=== PATIENT | female | born 1995 | race Two or more races ===

== ENCOUNTER 2017-01-29 10:21 | Inpatient (IN) | payer MEDICAID, OTHER ==
[2017-01-29 11:01] LABS: Urine Bilirubin Negative (Negative); Urine Glucose Negative (Negative); Urine Nitrite Negative (Negative)
[2017-01-29 11:21] LABS: Hematocrit 36 % (35-47); Hemoglobin 12.1 g/dl (12.0-16.0); Mean Corpuscular HGB Conc 33 g/dl (31-36); Mean Corpuscular Hemoglobin 29 pg (27-31); Mean Corpuscular Volume 88 fL (80-97); Mean Platelet Volume 9 um3 (7.4-10.4); Red Blood Count 4.12 10^6/ul (4.0-5.4); Red Cell Distribution Width 12 % (10.5-15); White Blood Count 6.5 10^3/ul (3.5-10.8)
[2017-01-29 11:23] LABS: Benzodiazepine Urine Screen None Detected (None Detect)
[2017-01-29 11:32] LABS: ALT 68 U/L (7-52); AST 71 U/L (13-39); Albumin 4.1 g/dL (3.2-5.2); Alkaline Phosphatase 50 U/L (34-104); Anion Gap 4 mmol/L (2-11); BUN/Creatinine Ratio 20.8 (8-20); Blood Urea Nitrogen 11 mg/dL (6-24); CO2 Carbon Dioxide 29 mmol/L (22-32); Calcium 9.1 mg/dL (8.6-10.3); Chloride 101 mmol/L (101-111); EGFR African American 191.1 (>60); EGFR Non-African American 148.6 (>60); Globulin 3.2 g/dL (2-4); Glucose 87 mg/dL (70-100); Potassium 3.6 mmol/L (3.5-5.0); Sodium 134 mmol/L (133-145); Total Protein 7.3 g/dL (6.4-8.9)
[2017-01-29 12:40] LABS: Acetaminophen < 15 mcg/mL; Alcohol < 10 mg/dL (<10); Salicylate < 2.50 mg/dL (<30)
[2017-01-29 12:50] LABS: TSH (Thyroid Stimulating Horm) 0.38 mcIU/mL (0.34-5.60)
[2017-01-29] MEDS ORDERED: Nicotine Inhaler* 10 MG AMP INH PRN (15:54)
[2017-01-29] MEDS ORDERED: Al Hydrox/Mg Hydrox/Simet LIQ* 30 ML UDC PO PRN (15:54)
[2017-01-29] MEDS ORDERED: Acetaminophen TAB* 325 MG PO PRN (15:54)
--- NOTE | 2017-01-29 16:06 | PN ---
Rey Álvarez Billy, scribed for Uri Alves MD on 01/29/17 at 1605 . Progress Note - Progress Note Note: Signed a voluntary mental health admission. Diagnosis: Depression. Condition: Stable. Disposition: Admitted to [facility] facilities. The documentation as recorded by the isabelleibRey de jesus Billy accurately reflects the service I personally performed and the decisions made by Joselyn fang Drew, MD.
--- NOTE | 2017-01-29 17:41 | ED ---
Mariella Álvarez Alok, scribed for Jude Shaw MD on 01/29/17 at 1059 . Psychiatric Complaint - HPI Summary HPI Summary: 21 y/o female presents to the ED with feelings of depression and fatigue. Pt reports that she has been stressed recently due to a greater workload at school as well as extracurricular activities. Pt states she has not been sleeping much and eating little. She states she has some thoughts of hurting herself with no plan. Pt has cut her risks before. PMHx includes hx of depression and anxiety. - History Of Current Complaint Chief Complaint: EDMentalHealth Time Seen by Provider: 01/29/17 10:47 Hx Obtained From: Patient ?: No Onset/Duration: Gradual Onset, Lasting Days, Still Present Timing: Constant Severity Initially: Moderate Severity Currently: Moderate Character: Depressed, Anxious Aggravating Factor(s): Nothing Alleviating Factor(s): Nothing Associated Signs And Symptoms: Positive: Sleep Disturbance, Appetite Change - Allergies/Home Medications Allergies/Adverse Reactions: Allergies Allergy/AdvReac Type Severity Reaction Status Date / Time No Known Allergies Allergy Verified 01/29/17 10:52 Home Medications: Home Medications Escitalopram (NF) [Lexapro (NF)] 15 mg PO DAILY 01/29/17 [History Confirmed 08/09] Gabapentin CAP(*) [Neurontin 400 mg CAP(*)] 400 mg PO TID 01/29/17 [History Confirmed 01/29/17] PMH/Surg Hx/FS Hx/Imm Hx Psychiatric History: Reports: Hx Anxiety, Hx Depression Infectious Disease History: No Infectious Disease History: Denies: Traveled Outside the [place] in Last 30 Days - Family History Known Family History: Negative: Cardiac Disease, Diabetes - Social History Occupation: Student Alcohol Use: None Hx Substance Use: No Hx Tobacco Use: No Review of Systems Negative: Fever Positive: Anxious, Depressed All Other Systems Reviewed And Are Negative: Yes Physical Exam Triage Information Reviewed: Yes Vital Signs On Initial Exam: Initial Vitals Temp Pulse Resp BP Pulse Ox 97.4 F 71 16 118/72 98 01/29/17 10:24 01/29/17 10:24 01/29/17 10:24 01/29/17 10:24 01/29/17 10:24 Vital Signs Reviewed: Yes Appearance: Positive: Well-Appearing, No Pain Distress, Well-Nourished Skin: Positive: Warm, Skin Color Reflects Adequate Perfusion, Dry Head/Face: Positive: Normal Head/Face Inspection Eyes: Positive: Normal, EOMI, BHARAT ENT: Positive: Normal ENT inspection Neck: Positive: Supple, Nontender Respiratory/Lung Sounds: Positive: Clear to Auscultation, Breath Sounds Present Cardiovascular: Positive: Normal, RRR Abdomen Description: Positive: Nontender, Soft Bowel Sounds: Positive: Present Musculoskeletal: Positive: Normal, Strength/ROM Intact Neurological: Positive: Normal, Sensory/Motor Intact, Alert, Oriented to Person Place, Time Psychiatric: Positive: Anxious, Depressed Diagnostics - Vital Signs Vital Signs Temp Pulse Resp BP Pulse Ox 01/29/17 10:24 97.4 F 71 16 118/72 98 - Laboratory Lab Results: Lab Results 01/29/17 01/29/17 01/29/17 Range/Units 10:28 10:28 11:07 WBC 6.5 (3.5-10.8) 10^3/ul RBC 4.12 (4.0-5.4) 10^6/ul Hgb 12.1 (12.0-16.0) g/dl Hct 36 (35-47) % MCV 88 (80-97) fL MCH 29 (27-31) pg MCHC 33 (31-36) g/dl RDW 12 (10.5-15) % Plt Count 281 (150-450) 10^3/ul MPV 9 (7.4-10.4) um3 Neut % (Auto) 44.8 (38-83) % Lymph % (Auto) 44.9 (25-47) % Owen % (Auto) 7.5 (1-9) % Eos % (Auto) 1.7 (0-6) % Baso % (Auto) 1.1 (0-2) % Absolute Neuts (auto) 2.9 (1.5-7.7) 10^3/ul Absolute Lymphs (auto) 2.9 (1.0-4.8) 10^3/ul Absolute Monos (auto) 0.5 (0-0.8) 10^3/ul Absolute Eos (auto) 0.1 (0-0.6) 10^3/ul Absolute Basos (auto) 0.1 (0-0.2) 10^3/ul Absolute Nucleated RBC 0.01 10^3/ul Nucleated RBC % 0.1 Sodium (133-145) mmol/L Potassium (3.5-5.0) mmol/L Chloride (101-111) mmol/L Carbon Dioxide (22-32) mmol/L Anion Gap (2-11) mmol/L BUN (6-24) mg/dL Creatinine (0.51-0.95) mg/dL Est GFR ( Amer) (>60) Est GFR (Non-Af Amer) (>60) BUN/Creatinine Ratio (8-20) Glucose (70-100) mg/dL Calcium (8.6-10.3) mg/dL Total Bilirubin (0.2-1.0) mg/dL AST (13-39) U/L ALT (7-52) U/L Alkaline Phosphatase (34-104) U/L Total Protein (6.4-8.9) g/dL Albumin (3.2-5.2) g/dL Globulin (2-4) g/dL Albumin/Globulin Ratio (1-3) TSH Urine Color Yellow Urine Appearance Clear Urine pH 7.0 (5-9) Ur Specific [place] 1.021 (1.010-1.030) Urine Protein Negative (Negative) Urine Ketones Negative (Negative) Urine Blood Negative (Negative) Urine Nitrate Negative (Negative) Urine Bilirubin Negative (Negative) Urine Urobilinogen Negative (Negative) Ur Leukocyte Esterase Negative (Negative) Urine Glucose Negative (Negative) Urine Ascorbic Acid * H (Negative) Salicylates Urine Opiates Screen None detected (None Detect) Acetaminophen Ur Barbiturates Screen None detected (None Detect) Ur Phencyclidine Scrn None detected (None Detect) Ur Amphetamines Screen None detected (None Detect) U Benzodiazepines Scrn None detected (None Detect) Urine Cocaine Screen None detected (None Detect) U Cannabinoids Screen None detected (None Detect) Serum Alcohol 01/29/17 Range/Units 11:07 WBC (3.5-10.8) 10^3/ul RBC (4.0-5.4) 10^6/ul Hgb (12.0-16.0) g/dl Hct (35-47) % MCV (80-97) fL MCH (27-31) pg MCHC (31-36) g/dl RDW (10.5-15) % Plt Count (150-450) 10^3/ul MPV (7.4-10.4) um3 Neut % (Auto) (38-83) % Lymph % (Auto) (25-47) % Owen % (Auto) (1-9) % Eos % (Auto) (0-6) % Baso % (Auto) (0-2) % Absolute Neuts (auto) (1.5-7.7) 10^3/ul Absolute Lymphs (auto) (1.0-4.8) 10^3/ul Absolute Monos (auto) (0-0.8) 10^3/ul Absolute Eos (auto) (0-0.6) 10^3/ul Absolute Basos (auto) (0-0.2) 10^3/ul Absolute Nucleated RBC 10^3/ul Nucleated RBC % Sodium 134 (133-145) mmol/L Potassium 3.6 (3.5-5.0) mmol/L Chloride 101 (101-111) mmol/L Carbon Dioxide 29 (22-32) mmol/L Anion Gap 4 (2-11) mmol/L BUN 11 (6-24) mg/dL Creatinine 0.53 (0.51-0.95) mg/dL Est GFR ( Amer) 191.1 (>60) Est GFR (Non-Af Amer) 148.6 (>60) BUN/Creatinine Ratio 20.8 H (8-20) Glucose 87 (70-100) mg/dL Calcium 9.1 (8.6-10.3) mg/dL Total Bilirubin 0.40 (0.2-1.0) mg/dL AST 71 H (13-39) U/L ALT 68 H (7-52) U/L Alkaline Phosphatase 50 (34-104) U/L Total Protein 7.3 (6.4-8.9) g/dL Albumin 4.1 (3.2-5.2) g/dL Globulin 3.2 (2-4) g/dL Albumin/Globulin Ratio 1.3 (1-3) TSH Pending Urine Color Urine Appearance Urine pH (5-9) Ur Specific [place] (1.010-1.030) Urine Protein (Negative) Urine Ketones (Negative) Urine Blood (Negative) Urine Nitrate (Negative) Urine Bilirubin (Negative) Urine Urobilinogen (Negative) Ur Leukocyte Esterase (Negative) Urine Glucose (Negative) Urine Ascorbic Acid (Negative) Salicylates Pending Urine Opiates Screen (None Detect) Acetaminophen Pending Ur Barbiturates Screen (None Detect) Ur Phencyclidine Scrn (None Detect) Ur Amphetamines Screen (None Detect) U Benzodiazepines Scrn (None Detect) Urine Cocaine Screen (None Detect) U Cannabinoids Screen (None Detect) Serum Alcohol Pending Result Diagrams: 01/29/17 11:07 01/29/17 11:07 Lab Statement: Any lab studies that have been ordered have been reviewed, and results considered in the medical decision making process. Course/Dx - Course Course Of Treatment: 21 y/o female presents to the ED with feelings of depression and fatigue. Pt reports that she has been stressed recently due to a greater workload at school as well as extracurricular activities. Pt states she has not been sleeping much and eating little. She states she has some thoughts of hurting herself with no plan. Pt has cut her risks before. PMHx includes hx of depression and anxiety. Assessment/Plan: . All blood work WNL. She is medically cleared. She is awaiting for a MHE. Dr. Smith will admit to the psych unit under her services. Patient is hemodynamically stable and A+O x 3. - Differential Dx/Clinical Impression Differential Diagnosis/HQI/PQRI: Positive: Depression, Suicidal Ideation, Suicidal Gesture Provider Diagnosis: Depression Discharge - Discharge Plan Condition: Stable [facility] [facility] The documentation as recorded by the Mariella valera Alok accurately reflects the service I personally performed and the decisions made by , Jude Shaw MD.
[2017-01-29] MEDS: Gabapentin CAP(*) 400 MG PO SCH (20:13)
[2017-01-30] MEDS: Vitamin THERAPEUTIC TAB PO SCH (08:06)
[2017-01-30] MEDS: Citalopram TAB* 10 MG PO SCH (08:07)
[2017-01-30] MEDS: Gabapentin CAP(*) 400 MG PO SCH ×3 (08:07→20:26)
[2017-01-30 11:51] LABS: Prealbumin 18 mg/dL (18-38)
--- NOTE | 2017-01-30 12:53 | HP ---
DATE OF ADMISSION: 01/29/2017. 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 She is admitted to the Psychiatric Unit after coming to the hospital emergency room by ambulance due to concern over "feeling overwhelmed and wanting to ." HISTORY OF PRESENT ILLNESS: Subhash reports that she has engaged in self- cutting innumerable times since the age of 15 as a coping strategy. She said last fall she had some active thoughts of suicide and was considering briefly jumping in a gorge. She has been getting outpatient treatment at [facility] since the fall of last year when she started her freshman year at [employer]. She said she started Lexapro and Gabapentin for depression and anxiety and has generally been adhering with it, but she says over the last several weeks she has been vomiting a lot spontaneously and has not been able to keep the medicines down and has not taken them regularly. She denied purging behavior. She reported several weeks of recurrent depressed mood. Previously symptoms have been controlled with her treatment. She endorsed regular sad mood, feelings of helplessness, hopelessness, relative anhedonia, feeling overwhelmed. She reported not getting enough sleep and having low energy. She said she developed passive wishes extensively, but had no active thoughts of suicide and was not contemplating any specific method. She reports episodic experiences of brief instances of paranoia that people do not like her, are all colluding against her, but with intact reality testing. She reported an isolated experience of "hearing voices" on an airplane a few weeks ago when she was under-slept, not able to eat and took several extra doses of Gabapentin to "catch up." Denied any other experiences of perceptual disturbances. She denied violent ideation. She denied new health diagnosis. She has not sought formal medical care for her experience of vomiting over the last few weeks. She reports being an anxious person and saying she has some obsessional tendencies, like not mixing black and white colors in her laundry, but denied that obsessions interfere with her life. She reported generally being anxious and irrationally worried at times. Denied social anxiety features. Denied a history of trauma. She denied a heavy use of alcohol, saying she has one drink from time to time without negative consequences and denied any regular use of other intoxicants. She was hopeful for a brief psychiatric hospitalization. Says she feels better today already and has multiple social and other activities that she feels like she is missing out on and getting behind on. She reported last using self-cutting as a coping method about two weeks ago. We had an additional meeting with Subhash's mother, interpreted by phone ( Raissa). I provided information on patient's history and presentation, risk concerns, evaluation, treatment and aftercare plan, and prognosis; and addressed all questions and concerns. PRIOR PSYCHIATRIC HISTORY: No psychiatric hospitalizations, no suicide attempts , no other medication trials. Care has been at [facility] [employer] since the fall with counseling and medication management. She reports making her developmental milestones on time. Denied childhood behavioral problems. Self-cutting behavior started at age 15. She denied jovan eating disorder symptoms. She had depression for about two years starting in her yury year of high school and it was interrupted by apparent effective treatment with counseling and medicine last fall. She reported chronic anxiety tendencies. She reported chronic anxiety tendencies. She denied a history consistent with roger or jovan psychosis. PAST MEDICAL HISTORY: No chronic illnesses. RECENT MEDICATIONS (NONADHERENT): 1. Lexapro 15 mg a day. 2. Gabapentin 400 mg t.i.d. ALLERGIES: No known drug allergies. FAMILY PSYCHIATRIC HISTORY: Mother had reactive depression after her 's about 15 years ago. No suicidal behavior in the family. ABUSE HISTORY: Denies. SOCIAL HISTORY: Subhash was born in [place] and lived there through about 7th grade. She lives in [place] with her mother for the last six years and her father when she was [age], he of leukemia. She reports having friends. She resides on campus at [employer] where she is a freshman and lives in a single room. She identifies as heterosexual and said she has been sexually active to intercourse. Overall, her gender and sexual preference development was a comfortable process. She has been with her current boyfriend for a couple of months and reports it is a good and supportive relationship. She is involved in extracurricular activities involving a sorority and also organizations bringing together students and also advocating for stigma reduction and discrimination reduction. She is not physically active. She participating in fencing in high school. MENTAL STATUS EXAMINATION: Healthy-appearing, 22-tk, female who is well - kempt in hospital clothing. She has normal psychomotor activity. She is pleasant, well-related, somewhat persuasive and assertive. Maintains good eye contact. Speech is soft in tone, but normal in quantity, it is spontaneous. Mood is described as "okay." Affect is dysphoric, it is stable, it does not really brighten. Thought process is coherent. Content negative for suicidal, homicidal or paranoid ideation. She says wishes have corrected. Sensorium is clear. She is alert and oriented times three. Insight and judgment is fair to good and impulse control is currently intact. REVIEW OF SYSTEMS: Negative for visual changes or neurological symptoms. Negative for respiratory difficulties apart from her saying that her chest gets tight when she is anxious. Negative for chest pain or syncope. Significant for gastrointestinal distress with stomach pain and spontaneous vomiting after meals, early satiety, inability to keep down medicines. Negative for change in bowel habits or urinary difficulties. Negative for musculoskeletal problems or skin problems. PHYSICAL EXAMINATION Physical examination is deferred. I have requested a Hospitalist consultation for evaluation of early satiety and vomiting. I discussed the case with Dr. Mckenna. VITAL SIGNS: Temperature 98.5, blood pressure 97/55, pulse 72, respiratory rate 16. ADMISSION LABORATORY STUDIES: CBC was normal. Comprehensive panel had BUN/ creatinine ratio of 20.8, AST was 71, ALT was 68. TSH was normal. Urinalysis had elevated ascorbic acid. Toxicology screen was negative for Tylenol, alcohol , or salicylate. Urine drug screen was negative. 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 She presents in crisis with several weeks of depressive symptoms , a pattern of unexplained vomiting that has interfered with her taking psychiatric medications, recent self-cutting and passive suicidal ideation. She requires psychiatric hospitalization for immediate safety, stabilization, evaluation and treatment planning. She has high and broad symptom endorsement with complaints including psychotic- like symptoms, depression and anxiety, and somatic symptoms. There may be some level of over endorsement and cry for help pattern, and based on her spontaneous status improvement today, and pattern of self cutting, her crisis could be in the context of borderline personality functioning. Under that circumstance, a relatively short psychiatric hospitalization may be appropriate. Psychological testing may be useful in evaluation. DIAGNOSES: Depressive disorder, not otherwise specified; anxiety disorder, not otherwise specified. TREATMENT PLAN: Admit to the Psychiatric Unit, code status is full, safety checks are at 15 minute intervals. Initiate comprehensive group milieu and individual psychotherapeutic supports. Medication management continues the outpatient medication regimen. Medical evaluation will involve hospitalist consultation. Target symptoms are suicidal ideation, self-cutting, depressive symptoms, anxiety, impaired functioning and coping. Estimated length of stay is three or four days. Discharge planning will involve coordination with appropriate aftercare. Subhash's strengths are her adequate baseline health, positive treatment alliances, and good intellectual functioning. [id number]/[facility] #: [id number] TIKI
--- NOTE | 2017-01-31 00:11 | CONS ---
CONSULTATION REPORT: DATE OF CONSULT: 01/30/17 PROVIDER: Ashlyn Henderson NP ATTENDING PHYSICIAN: Dr. Obdulio Betancourt (report dictated by Ashlyn Henderson NP ). PRIMARY CARE PROVIDER: Geeta at [facility]. REFERRING PHYSICIAN: Dr. Stewart. CONSULTATION REASON: Nausea, vomiting, and abdominal pain, several weeks of over satiety and vomiting. HISTORY OF PRESENT ILLNESS: Ms. Olvera is a 21-year-old female, [employer] student, from [employer], who has a past medical history of chronic self-cutting behavior, depression, anxiety, and outpatient psychiatric treatment who presented to the emergency department on 01/29/17 with concern for suicidal ideations, was admitted to the behavioral health unit. Hospital Medicine was asked to evaluate the patient for complaint of feeling full, nausea, vomiting, and abdominal pain. The patient was seen and evaluated at the bedside on the mental health unit. The patient currently denies any symptoms and reports that she has had this chronically since her yury year in high school. She reports that she only experiences these symptoms when she is anxious and upset. She does report she had some mild nausea and loss of appetite earlier today, but states that it has since resolved. She denies any constipation, diarrhea. Currently, she denies any abdominal pain. No recent fevers, chills. The patient currently reports that she has no symptoms. PAST MEDICAL HISTORY: 1. Depression. 2. Anxiety. 3. History of cutting. 4. The patient does report occasionally experiencing reflux like symptoms. Denying current symptoms at this time. CURRENT MEDICATIONS: 1. Acetaminophen 650 mg p.o. q.4 hours p.r.n. 2. Maalox 30 mL p.o. q.4 hours p.r.n. 3. Celexa 30 mg p.o. daily. 4. Neurontin 400 mg p.o. t.i.d. 5. Multivitamin 1 tab p.o. daily. 6. Nicotine inhaler 10 mg INH q.2 hours p.r.n. ALLERGIES: No known allergies. FAMILY HISTORY: Reviewed and noncontributory. SOCIAL HISTORY: The patient currently is a [employer] student in her freshman year. She lived in [place] until the age to 7th grade and otherwise lives in [place] with her mother. REVIEW OF SYSTEMS: A 14-point review of systems was performed. All the pertinent positives and negatives are mentioned in the history of present illness. All the remaining systems are negative. PHYSICAL EXAM: Appearance: Healthy appearing 21-year-old female, sitting up in bed, working on a computer in no acute distress. Appropriate to situation. Vital Signs: Temperature 98.5, heart rate 72, respirations 16, O2 sat 99% on room air, blood pressure 97/55. HEENT: Head is normocephalic, atraumatic. Pupils are equal and reactive to light. Oropharynx is clear. Neck: Supple. Lungs: Clear to auscultation bilaterally. Good aeration throughout. Cardiac: S1, S2. Regular rate and rhythm. No murmurs, rubs, or gallops appreciated. Abdomen: Soft, nontender, nondistended. Normal bowel sounds x4. No guarding. Extremities: Moves all extremities equally. Strength was 5/5 throughout. Neuro: Cranial nerves II through XII are grossly intact. Stable gait. Psych: Alert and oriented x3. Appropriate to situation, was very pleasant. DIAGNOSTIC STUDIES/LAB DATA: These are from yesterday, 01/29/17: WBC 6.5, RBC 4.12, Hgb 12.1, Hct 36, MCV 88, MCH 29, MCHC 33, platelet count 281. Sodium 134 , potassium 3.6, chloride 101, carbon dioxide 29, anon gap 4, BUN 11, creatinine 0.53, glucose 87, calcium 9.1, total bilirubin 0.40. AST 71, ALT 68 , alkaline phosphatase 50, total protein 7.3, albumin 4.1, prealbumin 18, TSH 0.38. Urinalysis negative. Tox screen negative. ASSESSMENT AND PLAN: Ms. Olvera is a 21-year-old female [employer] freshman who presents to the emergency department on 01/29/17 with suicidal ideation, admitted to behavioral health services. Hospital Medicine was asked to consult for several weeks of over satiety and vomiting with history of nausea and abdominal pain. 1. Nausea, vomiting, abdominal pain. The patient currently denies any symptoms and I suspect this is all secondary to psychogenic as she states she had this intermittently and chronically for 3 years and reports that when she is upset and feeling stressed. The patient does not have an acute abdomen. She does report some occasional reflux symptoms, but I do not recommend placing the patient on PPI at this time. I discussed with the patient relaxation techniques as well as healthy diet as well as if it continues, she could see a intertype operator as an outpatient. Again, as stated above, the patient currently denies any symptoms at this time and her abdominal exam was benign. 2. Transaminitis. Noted to have mildly elevated LFTs. Unclear etiology, suggest following up with another profile. TIME SPENT: Approximately 45 minutes were spent on this consultation. Hospital Medicine will sign off. Please contact us if we could be of any further assistance. ASHLYN HENDERSON, TANNER [id number]/[facility] #: [id number] TIKI
[2017-01-31] MEDS: Gabapentin CAP(*) 400 MG PO SCH ×3 (09:10→21:03)
[2017-01-31] MEDS: Citalopram TAB* 10 MG PO SCH (09:10)
[2017-01-31] MEDS: Vitamin THERAPEUTIC TAB PO SCH (09:11)
[2017-02-01] MEDS: Vitamin THERAPEUTIC TAB PO SCH (08:51)
[2017-02-01] MEDS: Gabapentin CAP(*) 400 MG PO SCH ×3 (08:51→21:22)
[2017-02-01] MEDS: Citalopram TAB* 10 MG PO SCH (08:51)
--- NOTE | 2017-02-01 21:05 | PN ---
Subjective - Subjective Service Type: 94758 Hosp care 15 min low complexity Subjective: Was with her mother best part of the day and finally was able to see her. Says she is feeling much better. DEnies suicidal or homicidal thoughts. Doing her class work in the day room. Objective - Appearance Appearance: Healthy Appearing Dysmorphic Features: No Hygiene: Normal Grooming: Well Kept - Behavior Psychomotor Activities: Normal Exhibits Abnormal Movement: No - Attitude and Relatedness Attitude and Relatedness: Appropriate Eye Contact: Good - Speech Quality: Unpressured Latencies: Normal Quantity: Appropriate - Mood Patient's Decription of Mood: "Good" - Affect Observed Affect: Non-labile Affect Consistent with: Euthymia - Thought Process Patient's Thought Process: Coherent, Goal Directed Thought Content: No Passive Wish, No Suicidal Planning, No Homicidal Ideation, No Paranoid Ideation - Sensorium Experiencing Hallucinations: No, Sensorium is Clear Type of Hallucinations: Visual: No, Auditory: No, Command: No - Level of Consciousness Level of Consciousness: Alert Orientation: Yes Intact, Yes Orientated to Time, Yes Orientated to Place, Yes Orientated to Person - Impulse Control Impulse Control: Intact - Insight and Judgement Insight and Judgement: Fair - Medication Management Medication Management Adherence: Yes Assessment - Assessment Merits Inpatient Hospitalization: Consolidate Improvements, Pending Safe DC Plan Plan - Plan Treatment Plan: Name: RAGHAV WILLIAMSON Birthdate: 1995 [id number] Continued Medication Management: Continue Outpt Medication Medications: Current Medications Acetaminophen (Tylenol Tab*) 650 mg PO Q4H PRN PRN Reason: for pain; or Temp >101 F Al Hydrox/Mg Hydrox/Simethicone (Maalox Plus*) 30 ml PO Q4H PRN PRN Reason: INDIGESTION Citalopram Hydrobromide (Celexa Tab*) 30 mg PO DAILY [facility] Last Admin: 02/01/17 08:51 Dose: 30 mg Gabapentin (Neurontin Cap(*)) 400 mg PO TID [facility] Last Admin: 02/01/17 13:32 Dose: 400 mg Multivitamins (Theragran Tab*) 1 tab PO DAILY [facility] Last Admin: 02/01/17 08:51 Dose: 1 tab Nicotine (Nicotine Inhaler*) 10 mg INH Q2H PRN PRN Reason: CRAVING - Discharge Plan Discharge Plan: Outpatient Follow Up Outpatient Program: Counseling/Psych Services at [place]
[2017-02-02 07:57] VITALS: BP 116/58
[2017-02-02] MEDS: Vitamin THERAPEUTIC TAB PO SCH (08:31)
[2017-02-02] MEDS: Gabapentin CAP(*) 400 MG PO SCH (08:31)
[2017-02-02] MEDS: Citalopram TAB* 10 MG PO SCH (08:32)
--- NOTE | 2017-02-02 08:54 | DS ---
Subjective - Subjective Service Types: 25732 [facility] Day Mgmt simple under 30 min Discharge Date: 02/02/17 Subjective: Subhash reported having a good, weekend, "got sleep !" and was appreciative for care here. She said she would not see obstacles in getting emergency help here again, or routine support at [facility],. She denied setbacks, reported "good" coping, absence of current emotional pain or distress. She affirmed she feels good about being alive and is free of suicidal ideation. We reviewed her MMPI profile, course here, aftercare plan and medication profiles. Objective - Appearance Appearance: Healthy Appearing Hygiene: Normal Grooming: Well Kept - Behavior Psychomotor Activities: Normal - Attitude and Relatedness Attitude and Relatedness: Well Related Eye Contact: Good - Speech Quality: Unpressured Latencies: Normal Quantity: Appropriate - Mood Patient's Decription of Mood: "Good" - Affect Observed Affect: Non-labile Affect Consistent with: Euthymia - Thought Process Patient's Thought Process: Coherent Thought Content: No Passive Wish, No Suicidal Planning, No Homicidal Ideation, No Paranoid Ideation - Sensorium Experiencing Hallucinations: No, Sensorium is Clear - Level of Consciousness Level of Consciousness: Alert - Impulse Control Impulse Control: Intact - Insight and Judgement Insight and Judgement: Good Treatment Course & Assessment Clinical Course & Impression: First psychiatric hospitalization for this 21-year-old [place] 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 She presents in crisis with several weeks of depressive symptoms, a pattern of unexplained vomiting that has interfered with her taking psychiatric medications , recent self-cutting and passive suicidal ideation. She had high and broad symptom endorsement with complaints including psychotic-like symptoms, depression and anxiety, and somatic symptoms. 02/02/17: Clear for release. Subhash was stable behaviorally here, and attained major clinical improvements. She had correction of acute mood symptoms and anxiety. She demonstrated no evidence of psychosis here. She was safe on checks and free of active suicidal ideation or self harm behaviors. She had improvement in somatic (gastrointenstinal) symptoms. Hospitalist consultation was obtained, cleared her for release, and determined GI distress was likely a somatic sign of her stress, and mental distress. I discussed case with lean process deployment consultant (Jose Durbin NP) who recommended outpatient primary care followup, and a re-check of lab test for liver profile, due to mild elevated transaminases. Evaluation included psychological testing with the MMPI (details in Dr. Kraus's note) - Subhash's profile had elevated lie scale often seen in high achieving college students, and neurotic triad and depression scales, which correlated clinically. There may have been some level of over endorsement and cry for help pattern in Subhash's initial presentation. In the context of her pattern of self cutting, this may suggest she has mild borderline personality traits. She is appropriate for outpatient care now. Risk concern centers on suicide risk, which is chronically elevated for Subhash based on her historic behaviors, symptom mix, and profile. At this time acute risk is assessed as low due to her very low current symptom burden, benign behavior and ideation, and absence of impairing factors. Clear for Discharge: Adequate Clinical Respons, Acceptable Safety Profile, Low Utility of Inpt Care Inpatient DSM-IV Dx: Depressive disorder, not otherwise specified; anxiety disorder, not otherwise specified. Discharge Planning - Discharge Planning Discharge Plan: Outpatient Follow Up Outpatient Program: Counseling[facility]Psych Services at [place] Recommendations for Continuing Care: Medication Management, Psychotherapy, Primary Care Followup - follow up mildly elevated liver enzymes Medications: Current Medications Citalopram Hydrobromide (Celexa Tab*) 30 mg PO DAILY [facility] Last Admin: 02/02/17 08:32 Dose: 30 mg Gabapentin (Neurontin Cap(*)) 400 mg PO TID [facility] Last Admin: 02/02/17 08:31 Dose: 400 mg Discharge Planning: Prescriptions provided for discharge [] Yes [x] No Follow up care details as per social work arrangements. Patient response to discharge plan: [x] eager for discharge [] agreeable with discharge plan [] ambivalent about discharge [] disagrees with discharge today
--- NOTE | 2017-02-02 23:01 | CONS ---
PSYCHOLOGICAL REPORT: DATE OF CONSULT: 02/02/17 REASON FOR REFERRAL: Subhash was referred for personality testing to assist with diagnostic impression as well as common concerns regarding possible lethality. Concerns revolve around level of depressive symptoms as well as possible characterological vulnerabilities to personality disorder including borderline personality traits. TESTS ADMINISTERED: Subhash completed the [place] Multiphasic Personality Inventory - 2 (MMPI-2). She was given feedback regarding test results in family meeting context including her mother. 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 She presented with good affect that varied appropriately with conversation and individual conversation and she briefly participated in cognitive behavioral group therapies well. Clinical discussion addressed sleep hygiene as well as stress. uSbhash interacted very pleasantly with her mother who asked very topical questions, and was curious as to how to make her daughter less depressed. Both her mother and this director underwriter sales encouraged Subhash to seriously consider dropping her course as she currently is taking 19 credit hours, which she has quite remarkably already been dropped from 22 credit hours. Discussion addressed how that volume of work is related to perhaps her current levels of dissatisfaction and difficulties in adjustment to her freshman year college. Subhash expressed some displeasure with this recommendation, describing how she is taking 2 minors and would like to complete this work in a timely fashion. She did impress it as developing some insight that her course load is at least in part responsible for her hospitalization. Subhash impresses as being future oriented, describing her hopes of obtaining employment after completion of her degree at [employer]. She expressed hopes of being able to return to [facility] where apparently she has lived since the 7th grade after immigrating from [place]. Her mother expressed concern that she had failed as a parent, elaborating how she became a single parent after the loss of Subhash's to leukemia. Both this director underwriter sales and Subhash reassured her mother that she in fact has done a wonderful job and that her daughter will be fine and has a bright future. TEST RESULTS: Subhash gives a fairly classic validity scale response on this administration of the MMPI-2, which is often found in her cohort of [employer] students. She mildly elevates the 3 stress scales (T = 65) and elevates the lie scale (T = 70). Both [employer] students as well as [employer] students who have been raised in cultures often elevate the lie scale as they hold themselves the higher than expected moral reasoning concepts as well as holding themselves to higher than expected behavioral conduct. Persons who elevate the lie scale tend to be high achievement driven [employer] students who are free of any sort of disciplinary or legal histories. They typically are very good students who often overwork themselves. On the clinical indices, Subhash has a very highly elevated depression scale (T = 90), with lesser elevations occurring on the other somatic symptom scales up the neurotic triad (T = 70 and 80 respectively). Persons high on the neurotic triad typically identify as having significant somatic complaints as Subhash received consultation regarding gastrointestinal duress. Feedback from medical sales consultant emphasized the role of emotional duress has on stomach problems. She has minor elevations occurring on the psychoticism scales (T = 65 to 70) and does not elevate either the psychopathic deviate or roger scales nor does she elevate the social introversion scale. IMPRESSION AND RECOMMENDATIONS: Concerns about the volume of her course work were the foremost recommendation made by this director underwriter sales, as 19 credit hours are very difficult to manage in a competitive environment. Subhash did not identify any other acute stressors in conversation and was quite anxious to be discharged to return to her studies. She denied experiencing any continuing thoughts of engaging in self-harm or suicide and instead expresses future orientation in a spontaneous and coherent fashion. Ongoing treatment should continue to assess for dangerousness as she has a history of engaging in self-injury with continue to rule out borderline personality traits. Continuing discussions begin to unravel how she may chris a better balance in her studies, so that she is able to ensure adequate sleep hygiene and diminish depressive symptomatologies by engaging in pleasurable activity. DIAGNOSTIC IMPRESSION: Depression, not otherwise specified, and rule out borderline personality features [place] axis II. [id number]/[facility] #: [id number] TIKI
== END 2017-02-02 11:15 | disposition home or self-care (01) | DRG 754 ==
LOC: ED 10:21 → BSU 15:56
PROVIDERS: ADMIT Psychiatry & Neurology Psychiatry; ATTEND Psychiatry & Neurology Psychiatry
DX: F32.9 Major depressive disorder, single episode, unspecified (principal); F41.9 Anxiety disorder, unspecified; Z91.5 Personal history of self-harm; F60.89 Other specific personality disorders; Z81.8 Family history of other mental and behavioral disorders; R11.2 Nausea with vomiting, unspecified; R10.9 Unspecified abdominal pain; R79.89 Other specified abnormal findings of blood chemistry
CPT/HCPCS: 36415; 80053; 80307; 80320; 80329; 81003; 84134; 84443; 85025; 96102; 99222; 99231; 99238; A9270-GY; G0480

== ENCOUNTER 2017-04-08 17:01 | Inpatient (IN) | payer OTHER, MEDICAID ==
[2017-04-08 18:04] LABS: Benzodiazepine Urine Screen None Detected (None Detect)
[2017-04-08 18:21] LABS: Urine Bacteria 3+ (Absent); Urine Bilirubin Negative (Negative); Urine Glucose Negative (Negative); Urine Nitrite Negative (Negative)
[2017-04-08 20:15] LABS: Hematocrit 43 % (35-47); Hemoglobin 14.2 g/dl (12.0-16.0); Mean Corpuscular HGB Conc 33 g/dl (31-36); Mean Corpuscular Hemoglobin 29 pg (27-31); Mean Corpuscular Volume 87 fL (80-97); Mean Platelet Volume 9 um3 (7.4-10.4); Red Cell Distribution Width 12 % (10.5-15); White Blood Count 8.8 10^3/ul (3.5-10.8)
[2017-04-08 20:31] LABS: ALT 13 U/L (7-52); AST 21 U/L (13-39); Albumin 4.7 g/dL (3.2-5.2); Alkaline Phosphatase 46 U/L (34-104); Anion Gap 10 mmol/L (2-11); BUN/Creatinine Ratio 14.7 (8-20); Blood Urea Nitrogen 10 mg/dL (6-24); CO2 Carbon Dioxide 25 mmol/L (22-32); Calcium 9.8 mg/dL (8.6-10.3); Chloride 100 mmol/L (101-111); EGFR African American 143.4 (>60); EGFR Non-African American 111.5 (>60); Globulin 3.7 g/dL (2-4); Glucose 78 mg/dL (70-100); Potassium 3.7 mmol/L (3.5-5.0); Sodium 135 mmol/L (133-145); Total Protein 8.4 g/dL (6.4-8.9)
[2017-04-08 20:56] LABS: Acetaminophen < 15 mcg/mL; Alcohol < 10 mg/dL (<10); Salicylate < 2.50 mg/dL (<30)
--- NOTE | 2017-04-08 22:45 | ED ---
Jayden Álvarez Erika, scribed for Edison Thompson MD on 04/08/17 at 1805 . Psychiatric Complaint - HPI Summary HPI Summary: Patient is a 21-year-old female presenting to the ED with a CC of SI. Patient was referred to the ED from [facility] due to SI, reporting she has had difficulty in school. She reports a Hx depression, and states that she stopped taking her gabapentin and lexapro a few weeks ago. Pt reports she wants to see her mother, who is currently en route from the [facility] area. She states she "does not want to talk about" why she is upset. - History Of Current Complaint Time Seen by Provider: 04/08/17 17:30 Hx Obtained From: Patient Onset/Duration: Gradual Onset, Still Present Timing: Constant Severity Currently: Moderate Character: Depressed Aggravating Factor(s): Recent Stress - School Alleviating Factor(s): Nothing Related History: Positive For: Prior Psychiatric Issues Has Suicidal: Reports: Thoughts - Allergies/Home Medications Allergies/Adverse Reactions: Allergies Allergy/AdvReac Type Severity Reaction Status Date / Time No Known Allergies Allergy Verified 01/29/17 10:52 PMH/Surg Hx/FS Hx/Imm Hx Psychiatric History: Reports: Hx Anxiety, Hx Depression Denies: Hx Eating Disorder, Hx of Violent Episodes Against Others - Family History Known Family History: Negative: Cardiac Disease, Diabetes - Social History Occupation: Student Alcohol Use: None Hx Substance Use: No Substance Use Type: Reports: None Hx Tobacco Use: No Smoking Status (MU): Never Smoked Tobacco Have You Smoked in the Last Year: No Review of Systems Negative: Fever Positive: Depressed - with SI All Other Systems Reviewed And Are Negative: Yes Physical Exam Triage Information Reviewed: Yes Vital Signs On Initial Exam: Initial Vital Signs Temp 98.2 F 04/08/17 17:42 Pulse 70 04/08/17 17:42 Resp 16 04/08/17 17:42 BP 119/61 04/08/17 17:42 Pulse Ox 99 04/08/17 17:42 Vital Signs Reviewed: Yes Appearance: Positive: Well-Appearing, No Pain Distress Skin: Positive: Warm, Skin Color Reflects Adequate Perfusion, Dry Head/Face: Positive: Normal Head/Face Inspection Eyes: Positive: Normal ENT: Positive: Normal ENT inspection Neck: Positive: Supple, Nontender Respiratory/Lung Sounds: Positive: Clear to Auscultation, Breath Sounds Present Cardiovascular: Positive: RRR Abdomen Description: Positive: Nontender, Soft Bowel Sounds: Positive: Present Musculoskeletal: Positive: Normal Neurological: Positive: Normal Psychiatric: Positive: Other - labile affect Diagnostics - Vital Signs Vital Signs Temp Pulse Resp BP Pulse Ox 04/08/17 21:38 98.6 F 92 16 125/56 98 04/08/17 18:06 98.2 F 70 16 119/61 94 04/08/17 17:42 98.2 F 70 16 119/61 99 - Laboratory Lab Results: Lab Results 04/08/17 04/08/17 04/08/17 Range/Units 17:24 17:24 20:09 WBC 8.8 (3.5-10.8) 10^3/ul RBC 5.00 (4.0-5.4) 10^6/ul Hgb 14.2 (12.0-16.0) g/dl Hct 43 (35-47) % MCV 87 (80-97) fL MCH 29 (27-31) pg MCHC 33 (31-36) g/dl RDW 12 (10.5-15) % Plt Count 322 (150-450) 10^3/ul MPV 9 (7.4-10.4) um3 Neut % (Auto) 59.6 (38-83) % Lymph % (Auto) 31.7 (25-47) % Ferry % (Auto) 7.2 (1-9) % Eos % (Auto) 1.0 (0-6) % Baso % (Auto) 0.5 (0-2) % Absolute Neuts (auto) 5.2 (1.5-7.7) 10^3/ul Absolute Lymphs (auto) 2.8 (1.0-4.8) 10^3/ul Absolute Monos (auto) 0.6 (0-0.8) 10^3/ul Absolute Eos (auto) 0.1 (0-0.6) 10^3/ul Absolute Basos (auto) 0 (0-0.2) 10^3/ul Absolute Nucleated RBC 0.01 10^3/ul Nucleated RBC % 0.1 Sodium (133-145) mmol/L Potassium (3.5-5.0) mmol/L Chloride (101-111) mmol/L Carbon Dioxide (22-32) mmol/L Anion Gap (2-11) mmol/L BUN (6-24) mg/dL Creatinine (0.51-0.95) mg/dL Est GFR ( Amer) (>60) Est GFR (Non-Af Amer) (>60) BUN/Creatinine Ratio (8-20) Glucose (70-100) mg/dL Calcium (8.6-10.3) mg/dL Total Bilirubin (0.2-1.0) mg/dL AST (13-39) U/L ALT (7-52) U/L Alkaline Phosphatase (34-104) U/L Total Protein (6.4-8.9) g/dL Albumin (3.2-5.2) g/dL Globulin (2-4) g/dL Albumin/Globulin Ratio (1-3) TSH (0.34-5.60) mcIU/mL Beta HCG, Quant mIU/mL Urine Color Yellow Urine Appearance Cloudy Urine pH 6.0 (5-9) Ur Specific [place] 1.016 (1.010-1.030) Urine Protein Negative (Negative) Urine Ketones Trace H (Negative) Urine Blood Negative (Negative) Urine Nitrate Negative (Negative) Urine Bilirubin Negative (Negative) Urine Urobilinogen Negative (Negative) Ur Leukocyte Esterase 1+ H (Negative) Urine WBC (Auto) Trace(0-5/hpf) (Absent) Urine RBC (Auto) Absent (Absent) Ur Squamous Epith Cells Present H (Absent) Urine Bacteria 3+ H (Absent) Urine Glucose Negative (Negative) Salicylates (<30) mg/dL Urine Opiates Screen None detected (None Detect) Acetaminophen mcg/mL Ur Barbiturates Screen None detected (None Detect) Ur Phencyclidine Scrn None detected (None Detect) Ur Amphetamines Screen None detected (None Detect) U Benzodiazepines Scrn None detected (None Detect) Urine Cocaine Screen None detected (None Detect) U Cannabinoids Screen None detected (None Detect) Serum Alcohol (<10) mg/dL 04/08/17 Range/Units 20:09 WBC (3.5-10.8) 10^3/ul RBC (4.0-5.4) 10^6/ul Hgb (12.0-16.0) g/dl Hct (35-47) % MCV (80-97) fL MCH (27-31) pg MCHC (31-36) g/dl RDW (10.5-15) % Plt Count (150-450) 10^3/ul MPV (7.4-10.4) um3 Neut % (Auto) (38-83) % Lymph % (Auto) (25-47) % Ferry % (Auto) (1-9) % Eos % (Auto) (0-6) % Baso % (Auto) (0-2) % Absolute Neuts (auto) (1.5-7.7) 10^3/ul Absolute Lymphs (auto) (1.0-4.8) 10^3/ul Absolute Monos (auto) (0-0.8) 10^3/ul Absolute Eos (auto) (0-0.6) 10^3/ul Absolute Basos (auto) (0-0.2) 10^3/ul Absolute Nucleated RBC 10^3/ul Nucleated RBC % Sodium 135 (133-145) mmol/L Potassium 3.7 (3.5-5.0) mmol/L Chloride 100 L (101-111) mmol/L Carbon Dioxide 25 (22-32) mmol/L Anion Gap 10 (2-11) mmol/L BUN 10 (6-24) mg/dL Creatinine 0.68 (0.51-0.95) mg/dL Est GFR ( Amer) 143.4 (>60) Est GFR (Non-Af Amer) 111.5 (>60) BUN/Creatinine Ratio 14.7 (8-20) Glucose 78 (70-100) mg/dL Calcium 9.8 (8.6-10.3) mg/dL Total Bilirubin 0.90 (0.2-1.0) mg/dL AST 21 (13-39) U/L ALT 13 (7-52) U/L Alkaline Phosphatase 46 (34-104) U/L Total Protein 8.4 (6.4-8.9) g/dL Albumin 4.7 (3.2-5.2) g/dL Globulin 3.7 (2-4) g/dL Albumin/Globulin Ratio 1.3 (1-3) TSH 0.60 (0.34-5.60) mcIU/mL Beta HCG, Quant < 0.60 mIU/mL Urine Color Urine Appearance Urine pH (5-9) Ur Specific [place] (1.010-1.030) Urine Protein (Negative) Urine Ketones (Negative) Urine Blood (Negative) Urine Nitrate (Negative) Urine Bilirubin (Negative) Urine Urobilinogen (Negative) Ur Leukocyte Esterase (Negative) Urine WBC (Auto) (Absent) Urine RBC (Auto) (Absent) Ur Squamous Epith Cells (Absent) Urine Bacteria (Absent) Urine Glucose (Negative) Salicylates < 2.50 (<30) mg/dL Urine Opiates Screen (None Detect) Acetaminophen < 15 mcg/mL Ur Barbiturates Screen (None Detect) Ur Phencyclidine Scrn (None Detect) Ur Amphetamines Screen (None Detect) U Benzodiazepines Scrn (None Detect) Urine Cocaine Screen (None Detect) U Cannabinoids Screen (None Detect) Serum Alcohol < 10 (<10) mg/dL Result Diagrams: 04/08/17 20:09 04/08/17 20:09 Lab Statement: Any lab studies that have been ordered have been reviewed, and results considered in the medical decision making process. Course/Dx - Course Course Of Treatment: Patient is medically cleared for MHU evaluation at 20:43 - Differential Dx/Clinical Impression Provider Diagnosis: Depression Discharge - Discharge Plan Condition: Stable Disposition: OTHER Discharge Disposition Comment: Change of Shift The documentation as recorded by the Jayden valera Erika accurately reflects the service I personally performed and the decisions made by me, Edison Thompson MD.
--- NOTE | 2017-04-09 11:35 | ED ---
Yady Álvarez Rebecca, scribed for Татьяна Elizabeth MD on 04/09/17 at 0003 . Progress - Progress Note Progress Note: At 2350, Jesus the psych gunstock spray unit feeder, relayed the concern of the pt that she would not like to stay overnight. Jesus relays that the pt was stating there is no documentation that requires she stay in the ED. Discussed the pt's cause for being brought to the ED as a 941. Reports she is accompanied by her mother and partner. - Consult/PCP Time Called: 22:33 Re-Evaluation - Re-Evaluation First Eval Re-Evaluation Time: 00:03 Change: Unchanged Comment: Explained to the pt why she is required to stay overnight for observation per the [facility] Mental Health Law. Pt states that she did not consent to staying at the ED and that she was promised by [facility] that if her mother came to the ED that she would be D/C. Explained that cannot occur, due to her being a threat to herself or others. Explained that Dr. Mera is admissions specialist and that he needs to collect collateral information from [employer] [place] in order for it to be determined that she is not a threat to herself. Pt was on the phone with [employer] [place]. Second Eval Re-Evaluation Time: 00:08 Change: Unchanged Comment: Discussed the conversation with Dr. Mera and the options of admission or continuation of being held. Expained that being released is, at this point, not an option due to the possibility that she is a threat to herself. Explained why the pt is required to stay overnight, given that further collateral information is required. Discussed why a medical clearance was necessary to r/o any physical causes for her presentation. Partner of the pt ( Estela Mendez) agreed to act as a electronic scanner operator for the pt's mother (Bebeto Perez), as she has questions concerning the case. Questions answered to the best of my ability. Pt agrees to stay, and to have her mother stay with her. Course/Dx - Course Course Of Treatment: Patient is medically cleared for MHU evaluation at 20:43 - Diagnoses Provider Diagnoses: Depressive disorder - Provider Notifications Discussed Care Of Patient With: Dr. Mera, discussing the meeting with the pt and her current presentation. Confirmed that her being held until confirmation that she is not a threat to herself is not a violation of Civil Rights due to this being an emergency mental health evaluation. Time Discussed With Above Provider: 00:05 The documentation as recorded by the Yady valera Rebecca accurately reflects the service I personally performed and the decisions made by me, Татьяна Elizabeth MD.
--- NOTE | 2017-04-09 11:53 | ED ---
Rey Álvarez Billy, scribed for Jude Shaw MD on 04/09/17 at 1103 . Progress - Progress Note Progress Note: Signed out by Dr. Elizabeth at shift change. Admit to [facility] by Dr. Gray. Diagnosis: depressive disorder. Condition: stable. Course/Dx - Diagnoses Provider Diagnoses: Depressive disorder Discharge - Discharge Plan Condition: Stable Disposition: PSYCHIATRIC FACILITY-[facility] Referrals: [facility], [Primary Care Provider] - The documentation as recorded by the Rey valera Billy accurately reflects the service I personally performed and the decisions made by Colin fang Walter, MD.
[2017-04-09] MEDS ORDERED: Al Hydrox/Mg Hydrox/Simet LIQ* 30 ML UDC PO PRN (12:33)
[2017-04-09] MEDS ORDERED: Acetaminophen TAB* 325 MG PO PRN (12:33)
[2017-04-09] MEDS ORDERED: Nicotine Inhaler* 10 MG AMP INH PRN (12:33)
[2017-04-09] MEDS ORDERED: hydrOXYzine HCL TAB* 25 MG PO PRN (12:35)
[2017-04-09] MEDS ORDERED: Mouth Piece, Nicotine* 1 EACH CARTRIDGE INH ONE (13:00)
[2017-04-09] MEDS: Gabapentin CAP(*) 100 MG PO SCH ×3 (14:27→20:50)
[2017-04-10] MEDS: Gabapentin CAP(*) 100 MG PO SCH (08:50)
[2017-04-10] MEDS ORDERED: Citalopram TAB* 10 MG PO SCH (09:00)
[2017-04-10] MEDS ORDERED: Vitamin THERAPEUTIC TAB PO SCH (09:00)
[2017-04-10 10:09] VITALS: BP 96/51
--- NOTE | 2017-04-10 13:59 | HP ---
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 She is admitted to the psychiatric unit about 2-1/2 months after her last psychiatric admission because she was brought to the hospital emergency room by ambulance with concern over suicidal ideation. HISTORY OF PRESENT ILLNESS: Subhash reports that she did pretty well until about 2 or 3 weeks ago following her last psychiatric hospitalization. She said when she ran out of psychiatric medications, she did not call for a refill and simply stopped them. She cited feeling better. There also was some aspect in which she was not adhering with treatment frame because she was not going to therapy appointments regularly anyway at that time. She reported increasing stressors recently with final exams coming. She noted some conflict with her boyfriend and she also noted that because her boyfriend and her friends are also stressed with finals, she has had less attention from them and less support. She has apparently engaged in some risky behavior of walking out on crosswalks at [employer], expecting cars to stop. This was framed to a nurse at [facility] as parasuicidal behavior. Other [facility] staff framed it as less serious and it appears that there was some splitting going on in terms of how Subhash was presenting to different providers there. She notes one instance of self-cutting since her last psychiatric hospitalization and no instances of actual suicidal behavior with any expectation that something was actually going to kill her. She denies symptoms of a major mood episode. She rather reports more reactive dysphoria over the last few days, with feelings of helplessness and neediness. She notes a little deterioration in her sleep quality and lower energy. She denies having any ongoing wishes, although she acknowledged feelings like at times that she wishes something like an earthquake or a storm would take her away. She denies current urges to harm herself. She denies formal eating disorder symptoms. She says she has gotten "car sick" after a couple of her meals recently and has thrown up on that basis. She notes anxiety about real stressors in general and denies irrational worry. She noted some dissociative-like symptoms going with stress. Denied they are happening presently. She denied perceptual disturbances. She made no delusional comments. She reported a couple of instances of alcohol use and said it did not lead to any severe intoxication or negative consequences. She denied the use of other intoxicants and denied new health problems. She was hopeful for release from the hospital today. We met with her mother who fully supported Subhash's release. I addressed her questions and concerns, which centered on how to support her outside the hospital. I advised on encouraging her engagement in outpatient followup and talked about her psychological profile with which therapy, particularly over a more extended period of time, can be helpful. PREVIOUS PSYCHIATRIC HISTORY: One prior psychiatric hospitalization at [facility] in January 2017, concerns centered on her having suicidal ideation. She had psychological testing done on that hospitalization, which had profile of the MMPI test that was fairly typical for a [facility] student with mildly elevated stress scales, elevation of the lie scale, highly elevated depression scale, and lesser elevations on somatic symptoms scales. The impression and recommendation was to continue ruling out and considering borderline traits. Subhash has had no previous medication trials other than Lexapro and gabapentin. She has had outpatient care and counseling and psychological services at [facility] since fall with counseling and medication management. She previously reported making developmental milestones on time and denied childhood behavioral problems. She started self-cutting behavior as a coping strategy at age 15. She has had some vomiting after meals, but has denied jovan eating disorder symptoms. She had depression for about 2 years starting in yury year in high school and therapy and medications started in fall at [facility], which helped her overcome depression. She reported chronic situational anxiety tendency. She denied any history consistent with roger or jovan psychosis. MEDICAL HISTORY: No chronic illnesses. MEDICATIONS: Current outpatient medications (nonadherent), last prescribed Lexapro and gabapentin. ALLERGIES: No known drug allergies. FAMILY PSYCHIATRIC HISTORY: Mother apparently had reactive depression after her 's about 15 years ago. No suicidal behavior in the family. ABUSE HISTORY: Denied. SUBSTANCE USE HISTORY: Reports occasional use of alcohol. Denies use of illicit drugs. Denies negative consequences. SOCIAL HISTORY: Subhash was born in [place], lived there through 7th grade. She moved to [place] and has lived there with her mother over the last 6 years. Subhash's father when she was 5. He of leukemia. She has had friends over the years. She has been living on campus at [facility], where she is a freshman and lives in a single room. She identifies as heterosexual and has reported being sexually active to intercourse. She is currently dating a male. Overall, her gender and sexual preference development was a comfortable process for her. She has been with her current boyfriend for several months and has had some ups and downs with it, but in general has reported it to be a good and supportive relationship. She is involved in extracurricular activities at [employer] through a sorority and also organizations that bring together students and advocate for stigma reduction. She is not physically active in sports or formal exercise. She did participate in fencing in high school. MENTAL STATUS EXAM: Healthy-appearing 22-tk female who is well-kempt in casual clothing. She has normal psychomotor activity. She is pleasant, fairly well related, and has good eye contact. Her speech is soft and tone normal in quantity, and it is spontaneous. Her mood is described as "fine." Her affect is stable and euthymic. Thought process is coherent. Content negative for suicidal, homicidal, or paranoid ideation. Sensorium is clear. She is alert and oriented x3. Insight and judgment is fair to good. Impulse control is intact. PHYSICAL ASSESSMENT: Vital Signs: Temperature 98.4, blood pressure is 96/51, pulse 71, respiratory rate 16. ADMISSION LABORATORY STUDIES: CBC was normal. Comprehensive panel had chloride of 100. test was negative. TSH was normal. Urinalysis had trace ketones, 1+ leukocyte esterase, present squamous epithelial cells, and 3+ bacteria. Toxicology screen was negative for Tylenol, alcohol, or salicylates. Urine drug screen was negative. REVIEW OF SYSTEMS: Negative for neurological symptoms, respiratory difficulties , chest pain, syncope, gastrointestinal symptoms, musculoskeletal problems, elimination symptoms, or skin problems. Physical examination is deferred. Sbuhash declined the physical examination citing lack of subjective need and her own preference. This is a reasonable refusal in a healthy capable person. It does not require followup. She is medically stable. CLINICAL SUMMARY: Second psychiatric hospitalization for a 21-year-old female with a history of treatment for depression, self-cutting behaviors, borderline personality traits. She is admitted due to concern over suicidal ideation and some risk-taking parasuicidal behavior. Subacutely, she has been poorly engaged in treatment and apparently had some reactive dysphoria and increased upset this week based on stressors and support deficits. While her therapy team had an outpatient care plan in place, she did activate emergency response due to her reporting to a nurse some level of suicidality above that what she reported to other providers. At this time, she does not require ongoing psychiatric hospitalization. She is out of crisis and stabilized. She is not in a major mood episode and her behavior is in good control, it is safe, as is her current ideation. This was obviously a coping breakdown under borderline personality features. It does not appear that her medication nonadherence precipitated a major mood episode. DIAGNOSES: Adjustment disorder, depressive disorder not otherwise specified; borderline personality traits or disorder. TREATMENT PLAN: Brief psychiatric admission, 1 day expected length of stay, safety checks [id number] intervals. Offer group, milieu and individual psychotherapeutic supports. Medication management has restarted the patient's outpatient regimen of Lexapro and Neurontin. Target symptoms were suicidal ideation, elevated distress, impaired coping, dysphoria. These are largely corrected. Impairment is corrected. The patient's strengths are her good baseline health and her intact intellectual functioning. Discharge planning involves coordination with outpatient followup at [facility] scheduled for today, 04/10/17. [id number]/[facility] #: [id number] TIKI
== END 2017-04-10 12:30 | disposition home or self-care (01) | DRG 755 ==
LOC: ED 17:01 → BSU 04-09 12:33
PROVIDERS: ADMIT Psychiatry & Neurology Psychiatry; ATTEND Psychiatry & Neurology Psychiatry
DX: F43.20 Adjustment disorder, unspecified (principal); F32.9 Major depressive disorder, single episode, unspecified; Z91.5 Personal history of self-harm; Z81.8 Family history of other mental and behavioral disorders; F41.9 Anxiety disorder, unspecified
CPT/HCPCS: 36415; 80053; 80307; 80320; 80329; 81003; 81015; 84443; 84702; 85025; 87086; 99238; A9270-GY; G0480